=== PATIENT | female | born 1980 | race Caucasian/White ===

== ENCOUNTER 2017-03-16 19:59 | Emergency (ER) | payer OTHER ==
[~2017-03-16] VITALS: Ht 157.5 cm; Wt 95.3 kg
[~2017-03-16 19:59] MED LIST: BACTROBAN2% TP; KEFLEX 500MG.500 MG PO; SINGULAIR10 MG PO; VALACYCLOVIR500 M1 PO; ZYRTEC ALLERGY10 MG PO
[2017-03-16] MEDS ORDERED: PROAIR HFA0.09 MG/AC IH (20:19)
--- OUTSIDE RECORDS SUMMARY | 2017-03-16 20:25 | External Medical Summary Rpt ---
Author Author [employer] Organization [employer] Address Unknown Phone Unavailable Purpose Continuity of Care Document - through 2016
--- OUTSIDE RECORDS SUMMARY | 2017-03-16 20:25 | External Medical Summary Rpt ---
Author Author , POLINA Grover POLINA Address Unknown Phone [email or web address] Purpose Continuity of Care Document - 01-17-2017 through 2016 Results Labs Lab Lab Date Result Refere Interp Status Commen Order Detail nces retati t Range on Urinalysis dipstick W Reflex Microscopic panel in Urine (02-06-2017 12:57) Bacteri 2+ O complet a 017 ed [Presen 12:57 ce] in Urine sedimen t by Light microsc opy Epithel 20-50 0#/hp complet ial 017 f - ed cells.s 12:57 5#/hp quamous f [Presen ce] in Urine sedimen t by Microsc opy high power field Urinalysis dipstick W Reflex Microscopic panel in Urine (02-06-2017 12:57) Appeara SL CLEAR complet nce of 017 CLOUDY ed Urine 12:57 Bilirub NEGATIV NEG complet in 017 E ed [Presen 12:57 ce] in Urine by Test strip Erythro NEGATIV NEG complet cytes 017 E ed [Presen 12:57 ce] in Urine Color YELLOW YELLOW complet of 017 ed Urine 12:57 Ketones NEGATIV NEG complet 017 E ed [Presen 12:57 ce] in Urine by Automat ed test strip Mucus NEGATIV NEG complet [Presen 017 E ed ce] in 12:57 Urine sedimen t by Light microsc opy Nitrite NEGATIV NEG complet 017 E ed [Presen 12:57 ce] in Urine by Test strip Urobili 0.2 NEG complet nogen 017 ed [Presen 12:57 ce] in Urine by Test strip
--- OUTSIDE RECORDS SUMMARY | 2017-03-16 20:25 | External Medical Summary Rpt ---
Author Author , POLINA Grover POLINA Address Unknown Phone [email or web address] Purpose Continuity of Care Document - 01-17-2017 [...]
--- OUTSIDE RECORDS SUMMARY | 2017-03-16 20:26 | External Medical Summary Rpt ---
Author Author POLINA Meyer, [employer] Organization [employer] Address Unknown Phone Unavailable Results Urinalysis dipstick W Reflex Microscopic panel in Urine Observa Value Referen Units Interpr Notes Date tion ce etation Range Appeara SL CLEAR No No No Feb 06 nce of CLOUDY informa informa informa 2017 Urine tion in tion in tion in 12:57 source source source PM data data data Bacteri 2+ O No No No Feb 06 a informa informa informa 2017 [Presen tion in tion in tion in 12:57 ce] in source source source PM Urine data data data sedimen t by Light microsc opy Bilirub NEGATIV NEG No No No Feb 06 in E informa informa informa 2017 [Presen tion in tion in tion in 12:57 ce] in source source source PM Urine data data data by Test strip Erythro NEGATIV NEG No No No Feb 06 cytes E informa informa informa 2017 [Presen tion in tion in tion in 12:57 ce] in source source source PM Urine data data data Color YELLOW YELLOW No No No Feb 06 of informa informa informa 2017 Urine tion in tion in tion in 12:57 source source source PM data data data Glucose NEG No No No Feb 06 [Mass/vol informati informati informati 2017 ume] in on in on in on in 12:57 PM Urine by source source source Test data data data strip Ketones NEGATIV NEG mg/dL No No Feb 06 E informa informa 2017 [Presen tion in tion in 12:57 ce] in source source PM Urine data data by Automat ed test strip Mucus NEGATIV NEG No No No Feb 06 [Presen E informa informa informa 2017 ce] in tion in tion in tion in 12:57 Urine source source source PM sedimen data data data t by Light microsc opy Nitrite NEGATIV NEG No No No Feb 06 E informa informa informa 2017 [Presen tion in tion in tion in 12:57 ce] in source source source PM Urine data data data by Test strip pH of 5.0 - 8.5 No Normal No Feb 06 Urine informati informati 2017 on in on in 12:57 PM source source data data Protein NEG mg/dL No No Feb 06 [Mass/vol informati informati 2017 ume] in on in on in 12:57 PM Urine by source source Automated data data test strip Specific 1.005 - No Normal No Feb 06 gravity 1.030 informati informati 2017 of Urine on in on in 12:57 PM source source data data Epithel 20-50 0 - 5 #/hpf No No Feb 06 ial informa informa 2017 cells.s tion in tion in 12:57 quamous source source PM data data [Presen ce] in Urine sedimen t by Microsc opy high power field Urobili 0.2 NEG E.U./dL No No Feb 06 nogen informa informa 2016 [Presen tion in tion in 12:57 ce] in source source PM Urine data data by Test strip Leukocyte O wbc/hpf No No Feb 06 s informati informati 2017 [#/volume on in on in 12:57 PM ] in source source Urine data data Urinalysis dipstick W Reflex Microscopic panel in Urine Observa Value Referen Units Interpr Notes Date tion ce etation Range Appeara SL CLEAR No No No Feb 06 nce of CLOUDY informa informa informa 2017 Urine tion in tion in tion in 12:57 source source source PM data data data Bilirub NEGATIV NEG No No No Feb 06 in E informa informa informa 2017 [Presen tion in tion in tion in 12:57 ce] in source source source PM Urine data data data by Test strip Erythro NEGATIV NEG No No No Feb 06 cytes E informa informa informa 2016 [Presen tion in tion in tion in 12:57 ce] in source source source PM Urine data data data Color YELLOW YELLOW No No No Feb 06 of informa informa informa 2017 Urine tion in tion in tion in 12:57 source source source PM data data data Glucose NEG No No No Feb 06 [Mass/vol informati informati informati 2017 ume] in on in on in on in 12:57 PM Urine by source source source Test data data data strip Ketones NEGATIV NEG mg/dL No No Feb 06 E informa informa 2016 [Presen tion in tion in 12:57 ce] in source source PM Urine data data by Automat ed test strip Mucus NEGATIV NEG No No No Feb 06 [Presen E informa informa informa 2016 ce] in tion in tion in tion in 12:57 Urine source source source PM sedimen data data data t by Light microsc opy Nitrite NEGATIV NEG No No No Feb 06 E informa informa informa 2016 [Presen tion in tion in tion in 12:57 ce] in source source source PM Urine data data data by Test strip pH of 5.0 - 8.5 No Normal No Feb 06 Urine informati informati 2017 on in on in 12:57 PM source source data data Protein NEG mg/dL No No Feb 06 [Mass/vol informati informati 2016 ume] in on in on in 12:57 PM Urine by source source Automated data data test strip Specific 1.005 - No Normal No Feb 06 gravity 1.030 informati informati 2016 of Urine on in on in 12:57 PM source source data data Urobili 0.2 NEG E.U./dL No No Feb 06 nogen informa informa 2016 [Presen tion in tion in 12:57 ce] in source source PM Urine data data by Test strip Comprehensive metabolic 2000 panel in Serum or Plasma Observa Value Referen Units Interpr Notes Date tion ce etation Range Albumin/G 1.1 - 1.8 No Low No January 17 lobulin informati informati 2016 9:09 [Mass on in on in AM ratio] in source source Serum or data data Plasma Albumin 3.4 - 5.0 gm/dL Low No January 17 [Mass/vol informati 2016 9:09 ume] in on in AM Serum or source Plasma data Alkaline 46 - 116 U/L High No January 17 phosphata informati 2016 9:09 se on in AM [Enzymati source c data activity/ volume] in Serum or Plasma Bilirubin 0.2 - 1.0 mg/dL Normal No January 17 .total informati 2016 9:09 [Mass/vol on in AM ume] in source Serum or data Plasma Urea 7 - 18 mg/dL Normal No January 17 nitrogen informati 2016 9:09 [Mass/vol on in AM ume] in source Serum or data Plasma Calcium 8.5 - mg/dL Low No January 17 [Mass/vol 10.1 informati 2016 9:09 ume] in on in AM Serum or source Plasma data Chloride 98 - 107 mmoL/L Normal No January 17 [Moles/vo informati 2016 9:09 lume] in on in AM Serum or source Plasma data Carbon 21.0 - mmoL/L Normal No January 17 dioxide, 32.0 informati 2016 9:09 total on in AM [Moles/vo source lume] in data Serum or Plasma Creatinin 0.55 - mg/dL Normal No January 17 e 1.02 informati 2016 9:09 [Mass/vol on in AM ume] in source Serum or data Plasma Estimated 59- ML/MIN No REFERENCE January 17 informati RANGE: 2017 9:09 glomerula on in >60 AM r source ML/MIN/1. filtratio data 73 SQUARE n rate METERSIf (GF this patient is -A merican, then multiply theresult by 1.210. Globulin 1.3 - 3.2 gm/dL Normal No January 17 [Mass/vol informati 2016 9:09 ume] in on in AM Serum source data Glucose 74 - 106 mg/dL High No January 17 [Mass/vol informati 2016 9:09 ume] in on in AM Serum or source Plasma data Potassium 3.5 - 5.1 mmoL/L Normal No January 17 informati 2016 9:09 [Moles/vo on in AM lume] in source Serum or data Plasma Sodium 136 - 145 mmoL/L Normal No January 17 [Moles/vo informati 2017 9:09 lume] in on in AM Serum or source Plasma data Aspartate 15 - 37 U/L Low No January 17 informati 2016 9:09 aminotran on in AM sferase source [Enzymati data c activity/ volume] in Serum or Plasma Alanine 12 - 78 U/L Normal No January 17 aminotran informati 2016 9:09 sferase on in AM [Enzymati source c data activity/ volume] in Serum or Plasma Protein 6.4 - 8.2 gm/dL Normal No January 17 [Mass/vol informati 2016 9:09 ume] in on in AM Serum or source Plasma data Lipid 1996 panel in Serum or Plasma Observa Value Referen Units Interpr Notes Date tion ce etation Range Cholester < 200 mg/dL No No January 17 ol informati informati 2016 9:09 [Moles/vo on in on in AM lume] in source source Unspecifi data data ed specimen Cholester 40 - 60 MG/DL Low No January 17 ol in HDL informati 2016 9:09 on in AM [Mass/vol source ume] in data Serum or Plasma Cholester 0 - 130 mg/dL Normal No January 17 ol in LDL informati 2016 9:09 on in AM [Mass/vol source ume] in data Serum or Plasma by calculati on Triglycer 30 - 200 mg/dL Normal No January 17 curtis informati 2016 9:09 [Moles/vo on in AM lume] in source Serum or data Plasma Cholester 0 - 40 No Normal No January 17 ol in informati informati 2016 9:09 VLDL on in on in AM [Mass/vol source source ume] in data data Serum or Plasma Thyrotropin [Units/volume] in Serum or Plasma Observa Value Referen Units Interpr Notes Date tion ce etation Range Thyrotrop 0.358 - uIU/ml Normal No January 17 in 3.740 informati 2016 9:09 [Units/vo on in AM lume] in source Serum or data Plasma CBC W Auto Differential panel in Blood Observa Value Referen Units Interpr Notes Date tion ce etation Range Basophils 0 - 0.2 K/MM3 Normal No January 17 informati 2016 9:09 [#/volume on in AM ] in source Blood by data Automated count Basophils 0.1 - 2.0 % Normal No January 17 informati 2016 9:09 leukocyte on in AM s in source Blood by data Automated count Eosinophi 0.0 - 0.4 K/mm3 Normal No January 17 ls informati 2016 9:09 [#/volume on in AM ] in source Blood by data Automated count Eosinophi 0.1 - % Normal No January 17 ls/100 12.0 informati 2016 9:09 leukocyte on in AM s in source Blood by data Automated count Granulocy 1.8 - 7.8 K/mm3 High No January 17 montrell informati 2016 9:09 [#/volume on in AM ] in source Blood by data Automated count Granulocy 37.0 - % Normal No January 17 montrell/100 80.0 informati 2016 9:09 leukocyte on in AM s in source Blood by data Automated count Hematocri 37.0 - % Normal No January 17 t [Volume 47.0 informati 2016 9:09 on in AM Fraction] source of Blood data Hemoglobi 12.2 - g/dL Normal No January 17 n 16.2 informati 2016 9:09 [Mass/vol on in AM ume] in source Blood data Lymphocyt 0.7 - 4.5 K/mm3 Normal No January 17 es informati 2016 9:09 [#/volume on in AM ] in source Unspecifi data ed specimen by Automated count Lymphocyt 10 - 50.0 % Normal No January 17 es informati 2016 9:09 [#/volume on in AM ] in source Unspecifi data ed specimen by Automated count Erythrocy 27 - 31.2 pg Low No January 17 te mean informati 2017 9:09 corpuscul on in AM ar source hemoglobi data n [Entitic mass] Erythrocy 31.8 - g/dl Low No January 17 te mean 35.4 informati 2016 9:09 corpuscul on in AM ar source hemoglobi data n concentra tion [Mass/vol ume] by Automated count Erythrocy 82.2 - fl Normal No January 17 te mean 97.8 informati 2016 9:09 corpuscul on in AM ar volume source [Entitic data volume] by Automated count Monocytes 0.1 - 1.0 K/mm3 Normal No January 17 informati 2016 9:09 [#/volume on in AM ] in source Blood by data Automated count Monocytes 1.7 - 9.3 % Normal No January 17 /100 informati 2017 9:09 leukocyte on in AM s in source Blood by data Automated count Platelet 7.4 - fl Low No January 17 mean 10.4 informati 2016 9:09 volume on in AM [Entitic source volume] data in Blood by Automated count Platelets 142 - 424 K/mm3 Normal No January 17 informati 2016 9:09 [#/volume on in AM ] in source Blood data Erythrocy 4.2 - 5.4 M/mm3 Normal No January 17 montrell informati 2016 9:09 [#/volume on in AM ] in source Amniotic data fluid Erythrocy 11.5 - % Normal No January 17 te 17.5 informati 2017 9:09 distribut on in AM ion width source [Entitic data volume] by Automated count Leukocyte 4.8 - K/MM3 Normal No January 17 s 10.8 informati 2017 9:09 [#/volume on in AM ] in source Blood data
--- OUTSIDE RECORDS SUMMARY | 2017-03-16 20:26 | External Medical Summary Rpt ---
Demographics Preferred Language Estonian Marital Status Unknown Yarsanism Affiliation Unknown Race Unknown Ethnic Group Unknown Author Author , POLINA FISH Address Unknown Phone Immunization Unable to retrieve immunization data due to connection failure with Immunization Registry. Please try again later.
--- OUTSIDE RECORDS SUMMARY | 2017-03-16 20:26 | External Medical Summary Rpt ---
Demographics Preferred Language Syriac Marital Status Unknown Rastafarian Affiliation Unknown Race Unknown Ethnic Group Unknown Author Author , POLINA FISH Address Unknown Phone Immunization Unable to retrieve immunization data due to connection failure with Immunization Registry. Please try again later.
[2017-03-16] MEDS ORDERED: KEFLEX 500MG.500 MG PO (20:48)
--- NOTE | 2017-03-16 20:48 | Emergency Room Report ---
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 N Clinical Suspician of Infection? N Mental Status: 1 - Regular (Normal Baseline) Sepsis Risk:Low Sepsis Risk Have you (or family members/close friends) recently traveled outside the [place]? N If Yes, where/when: Have you had exposure to infectious disease within the past month? N TB? Other? Specify: Source patient, RN notes reviewed, family, old records Exam Limitations no limitations Comment pt with rt great toe injury avulsed tonight with bleeding Cardiac Chest Pain Chest pain indicative of cardiac No Timing/Duration this evening Severity moderate ALLERGIES Coded Allergies: morphine (Intermediate, CHEST TIGHTNESS, SHORTNESS OF BREATH 03/16/17) Home Medications Reported Medications Montelukast Sodium (Singulair) 10 MG PO QHS Albuterol Sulfate (Proair Hfa) 2 PUFF IH Q6HP PRN BREATHING VALACYCLOVIR HCL (Valacyclovir) 500 MG PO Cetirizine Hcl (Zyrtec) 10 MG PO History Medical History General CAD? No Angina: No [place]: No Hypertension? No Hyperlipidemia? No CHF? No DVT? No PE? No COPD? No Asthma? Yes Anemia? Yes GERD? No Gastric ulcers? No GI Bleed? No Hernia? No Thyroid Problems? No Hypothyroidism? No CVA? No Seizures? No Diabetes? No Insulin Dependent: No Insulin Pump: No Home FSBS? No Renal Insuffiency? No End Stage Renal Disease? No UTI? No Stones? No BPH? No GB Disease: No Nephritic Syndrome? No Asplenia? No Hepatitis? No Sickle Cell Disease? No Arthritis? No Migraines? No Cataracts? No Glaucoma? No MRSA? No HIV? No TB? No Anxiety? No Depression? No Cancer? No More? 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 Respiratory denies cough, denies shortness of breath, denies wheezing Cardiovascular denies chest pain, denies syncope Gastrointestinal denies abdominal pain, denies diarrhea, denies vomiting Genitourinary denies: dysuria, frequency, hesitancy, hematuria. Musculoskeletal denies back pain, denies joint pain, denies joint swelling, denies neck pain, other Skin denies rash Psychiatric/Neurological denies headache, denies seizure Physical Exam Vital Signs Vital Signs Date Time Temp Pulse Resp B/P Pulse O2 O2 Flow FiO2 Ox Delivery Rate 03/16 2012 98.5 75 18 116/94 98 - WBC >12,000 or <4,000 or 10% bands? 2 or more SIRS Criteria Met? B/P:116/94 MAP:101 Creatinine >2.0? UA output<0.5ml/kg/hr for 2 hrs? Platelet count >100,000? Lactate >2.0mmol/1? INR >1.2 or PTT > than 60 sec? Evidence of Organ Dysfunction? Provider documented clinical suspician of infection? N Sepsis Criteria Count: 0 Sepsis Risk: Low Sepsis Risk General Appearance no apparent distress Eye Exam - bilateral eye PERRL, bilateral eye EOMI Ear, Nose, Throat normal ENT inspection Neck supple Respiratory Status No: respiratory distress. 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 No Results/Orders Current Medication Orders Sig/Tony Start time Last Medication Dose Route Stop Time Status Admin Lidocaine HCl 0 .STK-MED ONE 03/16 2031 DC .ROUTE Procedures Nail Proc/Finger Tip Repair Nail Proc/Finger Tip Repair Risks/benefits discussed with pt/guardian? Yes Nail Procedure/Finger Tip Repair avulsed nail Anesthesia Digital block Evacuation of subungual hematoma Yes Complete nail removal No Partial nail removal %- No Excision of nail & nailbed No Debridement Minimun Yes Debridement Moderate No Debridement Heavy No Rongeur of bone No Departure Departure Time of Disposition 2040 Disposition DC Home or Self Care(routine) Clinical Impression Primary Impression: Avulsed toenail Qualifiers: Encounter type: initial encounter Qualified Code: S91.209A - Unspecified open wound of unspecified toe(s) with damage to nail, initial encounter Condition STABLE Referrals BRENDON ROCHE DPM Patient Instructions DI for Nail Avulsion Injury Additional Instructions see pcp or podiarty if any problems Discharge Counseling Counseled pt/family regarding diagnosis, medications/RX, follow up needs Prescriptions Current Visit Scripts CEPHALEXIN (Keflex 500MG Capsule) 500 MG PO Q8H #21 [facility] ED Critical Care Critical Care No at 2048
--- NOTE | 2017-03-16 20:48 | Emergency Room Report ---
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 N Clinical Suspician of Infection? N Mental Status: 1 - Regular (Normal Baseline) Sepsis Risk:Low Sepsis Risk Have you (or family members/close friends) recently traveled outside the [place]? N If Yes, where/when: Have you had exposure to infectious disease within the past month? N TB? Other? Specify: Source patient, RN notes reviewed, family, old records Exam Limitations no limitations Comment pt with rt great toe injury avulsed tonight with bleeding Cardiac Chest Pain Chest pain indicative of cardiac No Timing/Duration this evening Severity moderate ALLERGIES Coded Allergies: morphine (Intermediate, CHEST TIGHTNESS, SHORTNESS OF BREATH 03/16/17) Home Medications Reported Medications Montelukast Sodium (Singulair) 10 MG PO QHS Albuterol Sulfate (Proair Hfa) 2 PUFF IH Q6HP PRN BREATHING VALACYCLOVIR HCL (Valacyclovir) 500 MG PO Cetirizine Hcl (Zyrtec) 10 MG PO History Medical History General CAD? No Angina: No [place]: No Hypertension? No Hyperlipidemia? No CHF? No DVT? No PE? No COPD? No Asthma? Yes Anemia? Yes GERD? No Gastric ulcers? No GI Bleed? No Hernia? No Thyroid Problems? No Hypothyroidism? No CVA? No Seizures? No Diabetes? No Insulin Dependent: No Insulin Pump: No Home FSBS? No Renal Insuffiency? No End Stage Renal Disease? No UTI? No Stones? No BPH? No GB Disease: No Nephritic Syndrome? No Asplenia? No Hepatitis? No Sickle Cell Disease? No Arthritis? No Migraines? No Cataracts? No Glaucoma? No MRSA? No HIV? No TB? No Anxiety? No Depression? No Cancer? No More? 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 Respiratory denies cough, denies shortness of breath, denies wheezing Cardiovascular denies chest pain, denies syncope Gastrointestinal denies abdominal pain, denies diarrhea, denies vomiting Genitourinary denies: dysuria, frequency, hesitancy, hematuria. Musculoskeletal denies back pain, denies joint pain, denies joint swelling, denies neck pain, other Skin denies rash Psychiatric/Neurological denies headache, denies seizure Physical Exam Vital Signs Vital Signs Date Time Temp Pulse Resp B/P Pulse O2 O2 Flow FiO2 Ox Delivery Rate 03/16 2012 98.5 75 18 116/94 98 - WBC >12,000 or <4,000 or 10% bands? 2 or more SIRS Criteria Met? B/P:116/94 MAP:101 Creatinine >2.0? UA output<0.5ml/kg/hr for 2 hrs? Platelet count >100,000? Lactate >2.0mmol/1? INR >1.2 or PTT > than 60 sec? Evidence of Organ Dysfunction? Provider documented clinical suspician of infection? N Sepsis Criteria Count: 0 Sepsis Risk: Low Sepsis Risk General Appearance no apparent distress Eye Exam - bilateral eye PERRL, bilateral eye EOMI Ear, Nose, Throat normal ENT inspection Neck supple Respiratory Status No: respiratory distress. 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 No Results/Orders Current Medication Orders Sig/Tony Start time Last Medication Dose Route Stop Time Status Admin Lidocaine HCl 0 .STK-MED ONE 03/16 2031 DC .ROUTE Procedures Nail Proc/Finger Tip Repair Nail Proc/Finger Tip Repair Risks/benefits discussed with pt/guardian? Yes Nail Procedure/Finger Tip Repair avulsed nail Anesthesia Digital block Evacuation of subungual hematoma Yes Complete nail removal No Partial nail removal %- No Excision of nail & nailbed No Debridement Minimun Yes Debridement Moderate No Debridement Heavy No Rongeur of bone No Departure Departure Time of Disposition 2040 Disposition DC Home or Self Care(routine) Clinical Impression Primary Impression: Avulsed toenail Qualifiers: Encounter type: initial encounter Qualified Code: S91.209A - Unspecified open wound of unspecified toe(s) with damage to nail, initial encounter Condition STABLE Referrals BRENDON ROCHE DPM Patient Instructions DI for Nail Avulsion Injury Additional Instructions see pcp or podiarty if any problems Discharge Counseling Counseled pt/family regarding diagnosis, medications/RX, follow up needs Prescriptions Current Visit Scripts CEPHALEXIN (Keflex 500MG Capsule) 500 MG PO Q8H #21 CAP ED Critical Care Critical Care No at 2048
[2017-03-16 21:10] VITALS: BP 104/61
== END 2017-03-16 21:30 | disposition home or self-care (01) ==
LOC: ER 19:59
DX: S91.209A Unspecified open wound of unspecified toe(s) with damage to nail, initial encounter (principal); W22.8XXA Striking against or struck by other objects, initial encounter; Y92.019 Unspecified place in single-family (private) house as the place of occurrence of the external cause; Z23 Encounter for immunization